=== PATIENT | female | born 1945 | race Caucasian/White ===

== ENCOUNTER 2019-03-24 10:30 | Observation (INO) | payer MEDICARE ==
[2019-03-23 09:53] LABS: BILIRUBIN,URINE NEGATIVE (NEGATIVE); CLARITY,URINE CLEAR (CLEAR); COLOR,URINE YELLOW (YELLOW); KETONES,URINE NEGATIVE (NEGATIVE); LEUKOCYTE ESTERASE ,URINE TRACE (NEGATIVE); NITRITE,URINE NEGATIVE (NEGATIVE); PROTEIN,URINE DIPSTICK NEGATIVE (NEGATIVE); URINE UROBILINOGEN 0.2 mg/dL (0.2 - 1)
--- NOTE | 2019-03-23 10:49 | Diagnostic Imaging Report ---
EXAMINATION: CHEST 2 VIEWS INDICATION: Pre-operative. COMPARISON: None FINDINGS: TUBES and LINES: None. LUNGS: Lungs are well inflated. There is no evidence of pneumonia or pulmonary edema. PLEURA: No pleural effusion or pneumothorax. HEART AND MEDIASTINUM: The cardiomediastinal silhouette is unremarkable. BONES AND SOFT TISSUES: No acute osseous lesion. Soft tissues are unremarkable. UPPER ABDOMEN: No free air under the diaphragm. IMPRESSION: No acute radiographic abnormality. Signed by: Dr. Tee Angelo MD on 03/23/2019 10:45 AM
[~2019-03-24] VITALS: Ht 160 cm; Wt 80.5 kg
[~2019-03-24 10:30] MED LIST: ASPIRIN81 M2 PO; CALCIUM 600 MG1 EAC4; CENTRUM SILVER1 EAC3 PO; FISH OIL 1,0001 EAC9; VITAMIN B; Z.0.ATENOLOL50 MG PO; Z.0.HYDROCHLOROTHIA2 PO; Z.0.MAGNESIUM250 MG PO; Z.0.NAPROXEN500 MG PO; Z.0.ULTRAM 50MG50 MG; Z.0.VITAMIN D3 1,01 PO; Z.3.CENTRUM SILVER1; Z.4.VITAMIN E400 UNI; [UNRECOGNIZED DRUG - OTHER]; [UNRECOGNIZED DRUG - OTHER] PO
--- OUTSIDE RECORDS SUMMARY | 2019-03-24 11:16 | XMS REPORT ---
[facility] Address Unknown Phone Unavailable Care Team Providers Care Chargeback Analyst Name Role Phone FRANCISCA VAZQUEZ Unavailable Unavailable Problems This patient has no known problems. Allergies, Adverse Reactions, Alerts This patient has no known allergies or adverse reactions. Medications This patient has no known medications. Results Test Description Test Time Test Comments Text Results Atomic Results Result Comments CHEST 2 VIEWS 2019-03-23 10:44:00 [facility] [address] [address] Patient Name: DARIO SCHWARZ MR #: [id number] : 1945 Age/Sex: 73/F Req #: [id number] Adm Physician: Ordered by: FRANCISCA VAZQUEZ MD Report #: [id number] Location: OR Room/Bed: Procedure: [id number] DX/CHEST 2 VIEWS Exam Date: 03/23/19 Exam Time: 0955 REPORT STATUS: Signed EXAMINATION: CHEST 2 VIEWS INDICATION: Pre-operati ve. COMPARISON: None FINDINGS: TUBES and LINES: None. LUNGS: Lungs are well inflated. There is no evidence of pneumonia or pulmonary edema. PLEURA: No pleural effusion or pneumothorax. HEART AND MEDIASTINUM: The cardiomediastinal silhouette is unremarkable. BONES AND SOFT TISSUES: No acute osseous lesion. Soft tissues are unremarkable. UPPER ABDOMEN: No free air under the diaphragm. IMPRESSION: No acute radiographic abnormality. Signed by: Dr. Camelia Espinoza MD on 03/23/2019 10:45 AM Dictated By: CAMELIA ESPINOZA MD [id number] Transcribed By: LIDIA on 03/23/19 1045 COPY TO: FRANCISCA VAZQUEZ MD
[2019-03-24] MEDS ORDERED: CEFAZOLIN SOD 2 GM/D5W 50ML 50 ML IV ONE (11:24)
[2019-03-24] MEDS ORDERED: BACITRACIN 50,000 UNIT VIAL ONE (12:50)
[2019-03-24] MEDS ORDERED: HYDROMORPHONE 0.2MG/ML-SOD CHL 30ML PCA SYRINGE IV PRN (15:45)
[2019-03-24] MEDS ORDERED: NALOXONE HCL INJ 0.4 MG/ML AMP IV PRN (15:45)
[2019-03-24] MEDS ORDERED: ACETAMINOPHEN 1000 MG/100 ML IV PRN (15:45)
--- NOTE | 2019-03-24 16:22 | Diagnostic Imaging Report ---
Exam: Left knee 2 views History: Postop Comparison: None. Findings: See impression Impression: 1. Postsurgical changes of total left knee replacement with intact surgical hardware and no periprosthetic displaced fracture. Expected overlying skin marysol and subcutaneous gas. Signed by: Dr. Scar Cortez M.D. on 03/24/2019 4:19 PM
--- NOTE | 2019-03-24 17:30 | NUR ---
pt arrived to unit resp even and unlabored at this time, no distress noted, pt was able to transfer from stretcher to bed, bed in lowest position, rails up X 2, pt oriented to to room and call light, call light in reach. family member at bedside.
[2019-03-24 17:43] VITALS: BP 163/80
--- NOTE | 2019-03-24 18:07 | NUR ---
pt worked with PT walked 150ft. tolerated well.
[2019-03-24] MEDS: SODIUM CHLORIDE 0.9% 1000ML 1,000 ML IV SCH (18:09)
[2019-03-24] MEDS ORDERED: ROPIVACAINE 0.5% 5 MG/ML 30 ML SDV ONE (18:35)
[2019-03-24] MEDS ORDERED: MIDAZOLAM HCL 2 MG/2 ML VIAL ONE (19:36)
[2019-03-24] MEDS ORDERED: FENTANYL CITRATE/PF 100MCG/2 ML INJ ONE ×2 (19:36→19:51)
--- NOTE | 2019-03-24 19:42 | NUR ---
BEDSIDE SHIFT REPORT PERFORMED, RECEIVED PT LAYING SEMI FOWLERS IN BED, AAOX3, RR EVEN AND NON-LABORED, ON RA. NO S/SX OF DISTRESS NOTED. DEPARTMENT COORDINATOR BUTTON WITHIN REACH. (L) KNEE DRESSING NOTED TO BE CDI. LEFT PT LAYING SEMI FOWLERS IN BED, BED IN LOW LOCKED POSITION, SIDE RAILS UPX2, CALL LIGHT AND PHONE WITHIN REACH.
--- NOTE | 2019-03-24 19:45 | NUR ---
REPORT GIVEN TO ONCOMING NURSE, FOR CONTINUED CARE.
[2019-03-24] MEDS ORDERED: MORPHINE SULFATE INJ 10 MG/ML ONE (19:51)
[2019-03-24 20:00] VITALS: BP 140/67
[2019-03-24] MEDS ORDERED: PROPOFOL IV EMULSION 10 MG/ML 20 ML VIAL ONE (20:10)
[2019-03-24] MEDS ORDERED: LIDOCAINE HCL 2% LOCAL INJ 5 ML SDV VIAL INJ ONE (20:10)
[2019-03-24] MEDS ORDERED: SEVOFLURANE INHAL SOLN 250 ML PEN BTL ONE (20:10)
[2019-03-24] MEDS ORDERED: ACETAMINOPHEN 1000 MG/100 ML IV ONE (20:10)
[2019-03-24] MEDS ORDERED: ONDANSETRON HCL INJ 2MG/ML 2ML 2 MG/ML VIAL ONE (20:10)
[2019-03-24] MEDS ORDERED: DEXAMETHASONE SOD PHOS INJ 4 MG/ML VIAL ONE (20:10)
[2019-03-24 20:44] VITALS: BP 140/67
[2019-03-24] MEDS: CEFAZOLIN SOD 1 GM/NS 50ML 50 ML IV SCH (21:30)
[2019-03-25] VITALS (7 sets, daily range): BP systolic 110–143; BP diastolic 57–69
[2019-03-25] MEDS: SODIUM CHLORIDE 0.9% 1000ML 1,000 ML IV SCH ×2 (01:36→11:53)
[2019-03-25] MEDS: CEFAZOLIN SOD 1 GM/NS 50ML 50 ML IV SCH ×2 (06:02→14:00)
[2019-03-25 06:38] LABS: HEMOGLOBIN 10.6 g/dL (12.0-16.0)
--- NOTE | 2019-03-25 07:15 | NUR ---
pt alert resp even and unlabored at this time no distress noted at this time, pt able to make needs known. pt on CPM machine at this time and tolerating well. call light in reach.
[2019-03-25] MEDS: ONDANSETRON HCL INJ 2MG/ML 2ML 2 MG/ML VIAL IV PRN ×2 (08:23→14:36)
[2019-03-25] MEDS: RIVAROXABAN 10 MG TABLET PO SCH ×2 (09:09→17:47)
--- NOTE | 2019-03-25 09:16 | NUR ---
EDUCATED ABOUT IMM, SIGNED, FILED IN CHART, WITH COPY LEFT WITH FAMILY AT BEDSIDE.
--- NOTE | 2019-03-25 19:18 | NUR ---
report given to oncoming nurse, for continued care.
--- NOTE | 2019-03-25 19:40 | NUR ---
CPM APPLIED @ 55 FLEXION DEGREE.
[2019-03-25] MEDS ORDERED: HYDROMORPHONE 1MG/1ML INJ IV PRN (20:15)
[2019-03-25] MEDS ORDERED: HYDROMORPHONE 2MG/ML 2 MG/ML ML IV PRN (20:45)
--- NOTE | 2019-03-25 21:40 | NUR ---
Assessment done.no resp.distress.pain voiced 02/27.left knee dressing is dry .bed locked and in lowest position.phone and call light within reach.instructed to call for assistance as needed.
[2019-03-26 00:34] VITALS: BP 143/69
--- NOTE | 2019-03-26 01:16 | NUR ---
D/C HYPOID GEAR GENERATOR DILAUDID.
--- NOTE | 2019-03-26 02:32 | NUR ---
TEMP CHECKED AND NOTED 99.7.
--- NOTE | 2019-03-26 03:12 | Consultation ---
DATE OF CONSULTATION: PRIMARY CARE PHYSICIAN: Kristian Cash MD REASON FOR CONSULTATION: Medical management post left total knee replacement. HISTORY OF PRESENT ILLNESS: This is a 73-year-old female with long-standing left knee osteoarthritis. The patient had conservative measure for years with intractable left knee pain and now is status post left knee replacement. She did have left knee arthroscopic surgery previously. Baseline hypertension. The patient is otherwise stable. Currently, she is postoperative day #1, she is doing well. She is on a left knee immobilizer. The patient is having pain, but stable and controlled with pain medication. The patient does have some nausea with RADIOGRAPHY TECHNICIAN, but she is stable. PAST MEDICAL HISTORY: Hypertension and osteoarthritis. PAST SURGICAL HISTORY: Left knee arthroscopic surgery, now status post left knee total replacement. ALLERGIES: NO KNOWN ALLERGIES. HOME MEDICATIONS: Atenolol, HCTZ, and multivitamins. PHYSICAL EXAMINATION: VITAL SIGNS: Temperature is 98, blood pressure 136/65, pulse rate is 84, and respirations 18. GENERAL: The patient in good spirits. She is not in any distress. Pain control. No chest pain. No shortness of breath. HEENT: Normocephalic, atraumatic. Anicteric. NECK: Supple grossly. PULMONARY: Grossly bilaterally anteriorly. CARDIOVASCULAR: Regular rate and rhythm. ABDOMEN: Soft, nondistention. Positive bowel sounds. EXTREMITIES: Status post left knee replacement, left lower extremity on knee immobilizer. No gross edema. PJ hose intact. SCD. NEUROLOGIC: No gross focal deficit. The patient is awake and alert x4. LABORATORY DATA: Hemoglobin and hematocrit are 10.6 and 31.0. IMPRESSION: 1. Postoperative day #1, post left total knee replacement. 2. Hypertension, adequately controlled. 3. Slight anemia. PLAN: We will adjust the patient's medication. The anemia could be hemodilution since the patient on IV fluids. We will discontinue IV fluids. The patient is already on a diet. We will repeat lab work. Adjust patient's medication, we will discontinue the RADIOGRAPHY TECHNICIAN due to nausea. Thank you, Dr. Jose Del Valle. We will continue to monitor this patient with you until she is discharged from the hospital. MD SARAH Jordan/MODL /[id number]
[2019-03-26] MEDS: HYDROCODONE/APAP 10MG-325MG TAB PO PRN ×2 (05:24→09:45)
[2019-03-26 05:51] VITALS: BP 140/75
[2019-03-26 06:06] LABS: BASOPHILS % 0.3 % (0.0-1.0); EOSINOPHILS # (AUTO) 0.1 (0.0-0.4); EOSINOPHILS % 1.3 % (0.0-6.0); HEMATOCRIT 27.7 % (34.2-44.1); HEMOGLOBIN 9.4 g/dL (12.0-16.0); LYMPHOCYTES # (AUTO) 0.7 (1.0-3.2); LYMPHOCYTES % 10.2 % (18.0-39.1); MEAN CORPUSCULAR HEMOGLOBIN 29.9 pg (28-32); MEAN CORPUSCULAR HGB CONC 33.9 g/dL (31-35); MEAN CORPUSCULAR VOLUME 88.2 fL (81-99); MONOCYTES # (AUTO) 0.8 (0.2-0.8); NEUTROPHILS # (AUTO) 5.4 (2.1-6.9); NEUTROPHILS % 76.8 % (38.7-80.0); PLATELET COUNT 165 x10e3/uL (140-360); RED BLOOD COUNT 3.14 x10e6/uL (3.6-5.1); RED CELL DISTRIBUTION WIDTH 12.7 % (11.7-14.4)
--- NOTE | 2019-03-26 06:18 | NUR ---
Dsg changed.cpm applied @ flexion degree 55.tolerating well.
[2019-03-26 06:31] LABS: ANION GAP 10.6 mmol/L (8-16); BLOOD UREA NITROGEN 11 mg/dL (7-26); BUN/CREATININE RATIO 14 (6-25); CALCIUM 8.9 mg/dL (8.4-10.2); CARBON DIOXIDE 25 mmol/L (22-29); CHLORIDE 101 mmol/L (98-107); CREATININE, SERUM 0.79 mg/dL (0.57-1.11); EST GLOMERULAR FILTRATION RATE > 60 ML/MIN (60-); GLUCOSE 130 mg/dL (74-118); POTASSIUM 3.6 mmol/L (3.5-5.1); SODIUM 133 mmol/L (136-145)
--- NOTE | 2019-03-26 06:50 | NUR ---
REPORT GIVEN TO THE ONCOMING RN.WALKING ROUNDS DONE.STABLE CONDITION.
--- NOTE | 2019-03-26 07:15 | NUR ---
PT RESTING IN BED AA0X3. PT IS CURRENTLY ON CPM TO THE LEFT KNEE TOLERATING WELL LEFT KNEE DRESSING IS DRY AND INTACT, BILATERAL PJ HOLES ON AND FOOT PUMPS PT HAS A RIGHT HAND 20 SL CLEAN AND DRY WILL CONTINUE TO MONITOR PT CLOSELY SIDE RAILSX2, BED WHEELS LOCKED ,CALL LIGHT IS WITHIN EASY REACH INSTRUCTED TO CALL FOR ASSISTANCE IF NEEDED
[2019-03-26 07:48] VITALS: BP 136/65
[2019-03-26 09:00] VITALS: BP 136/65
[2019-03-26 11:49] VITALS: BP 131/60
--- NOTE | 2019-03-26 12:10 | NUR ---
Called and spoke with Nina at [employer] [facility]. She states they have authorization for DME and have already been in contact with pt. Will deliver tomorrow if pt discharges today.
--- NOTE | 2019-03-26 13:37 | NUR ---
Provided pt with walker from hospital and had DME form signed. CM printed contact information for DME company and home health [employer] and gave them to pt. She has already been contacted by both. [facility] - will see pt tomorrow. [facility]
--- NOTE | 2019-03-26 15:00 | NUR ---
DC INSTRUCTIONS AND PRESCRIPTIONS GIVEN. PT VERBALIZED UNDERSTANDING IV DC PRESSURE DRESSING APPLIED AND TAPED WALKER HAS BEEN DELIVERED PT IS NOW OFF UNIT TO HOME
--- NOTE | 2019-03-26 17:42 | Operative Report ---
DATE OF PROCEDURE: 03/24/2019 SURGEON: Jose Del Valle MD PREOPERATIVE DIAGNOSIS: Osteoarthritis of the left knee. POSTOPERATIVE DIAGNOSIS: Osteoarthritis of the left knee. OPERATION/PROCEDURE PERFORMED: The patient underwent a left total knee arthroplasty using the Matt Next Generation System, size F femoral component, size 4 tibial component, a 12 mm tibial insert and a 35 mm patella button. INSURANCE UNDERWRITER SALES: Sravanthi Goyal. ANESTHESIA: General endotracheal intubation anesthesia. IV FLUIDS: As per the anesthesia record. BRIEF DESCRIPTION OF THE PATIENT'S OPERATIVE PROCEDURE: Ms. Galvez was taken to the operating room, placed supine position on the operating table. Following the induction of general anesthesia as well as endotracheal intubation, the patient's left lower extremity was examined unde anesthesia. She does not have no gross abnormalities in left lower extremity. The patient's lower extremities were prepped and draped in surgical fashion. The incision was carried along the long axis of the knee. This incision was begun approximately 8 cm proximal to the proximal pole, patella, and extended distally to the level of the tibial tubercle. The incision was carried through skin only. Full-thickness skin flaps were elevated both medially and laterally exposing the extensor mechanism. The extensor mechanism was then incised in line with the skin incision and the patella was reflected laterally. Osteophytes were removed from the patella, the femur, and the tibia. The anterior horns of the medial lateral meniscus were resected. The fat pad was also resected at this time. The knee was placed in flexion of the anterior posterior cruciate ligaments were sacrificed. The 5-in-1 cutting block was then affixed to the femur and the femoral cuts were performed. The intercondylar notch cutting block was then affixed to the femur and the intercondylar notch cut was performed. The finishing block was then affixed to the femur and finalizing the cuts for the femur. Attention was then turned to the tibia. Appropriate retractors were placed around the knee joint to correct all spinal neurovascular structures. The external tibial alignment guide was affixed to the tibia and adjusted appropriately. The proximal tibia was cut. The keel cutting device was then affixed to the tibia and the keel cut was performed. Trial femoral and tibial components were inserted in the knee and soft tissues were balanced. An appropriate size tibial insert was placed in the tibial tray and the knee was reduced and placed in motion, found to be stable. The patella was then reamed and an appropriate size patellar button was affixed to the undersurface of the patella. The patellofemoral joint was reduced and placed through motion. The patella was back, found to track in the center of the knee. All trial components were removed. Cement was mixed on the back table. The bone was prepared for cementation. The femoral tibial and patellar components were then cemented into place. Once cement had cured, tibial insert was inserted into the tibial tray and the knee was reduced and placed through range of motion. Again, found to be stable. The wound was copiously irrigated. The extensor mechanism was repaired with nonabsorbable sutures in a [id number]-bvuic fashion. The remaining soft tissues were closed in a multilayer fashion. Sterile dressings were applied and the patient was then awakened, taken to postanesthesia care unit in stable condition. MD COSME Islas/PINO /[id number]
--- NOTE | 2019-03-27 03:00 | Discharge Summary ---
ADMISSION DIAGNOSIS: End-stage arthritis, left knee. DISCHARGE DIAGNOSIS: End-stage arthritis, left knee. PROCEDURE PERFORMED: The patient underwent left total knee arthroplasty on March 24, 2019. CONSULTATIONS: With Dr. Alston of General Medicine Services as well as with Physical Therapy. BRIEF DESCRIPTION OF HOSPITAL STAY: Ms. Galvez was admitted the hospital on March 24, 2019, and underwent an uncomplicated total knee arthroplasty. She tolerated the procedure well and returned to the postsurgical floor immediately following her surgery. She tolerated her diet following her surgery. She progressed slowly with therapy following the surgery. She had excessive pain requiring IV pain medications following her surgery. On her first postoperative day, she progressed well with physical therapy, but her pain was excessive requiring continued IV medications and therefore she was kept an additional day. Her hemoglobin remained stable during her hospital stay. Her wounds were clean, dry, and intact. On her second postoperative day, she progressed with therapy and her pain was under much better control. She was transitioned from IV to oral pain medications. The therapist deemed her a candidate to be discharged home with outpatient services. She remained medically stable. She was discharged home in stable condition. She will be discharged home. She will have home health and home physical therapy. She will continue her normal diet. She will continue all of her preoperative medications. She will also take [place] 1 to 2 p.o. q.6 hours p.r.n. pain. She will take Xarelto 10 mg p.o. daily as DVT prophylaxis. She will keep her wounds clean, dry, and intact. She will contact the office with excessive drainage from her wounds, intractable pain, or fevers greater than 101.5 that were sustained. She is weightbearing to tolerance on her left lower extremity. She will also contact the office for followup appointment in approximately 10 to 14 days. MD COSME Islas/PINO /[id number]
== END 2019-03-26 14:57 | disposition home health service (06) ==
LOC: OR 10:30 → INTOOBSV 17:04 → MED/SURG 17:04
PROVIDERS: ADMIT Specialist; ATTEND Specialist
DX: M17.12 Unilateral primary osteoarthritis, left knee (principal); I10 Essential (primary) hypertension; D64.9 Anemia, unspecified
CPT/HCPCS: 27447; 36415 ×2; 71046; 73560; 80048; 81003; 85014; 85018; 85025; 86850; 86900; 86920; 97110; 97116 ×3; 97139; 97162; 97530; C1713; G0378 ×3; J0131; J0690 ×3; J1100; J2001; J2250; J2270; J2405 ×2; J2704; J2795; J7030

== ENCOUNTER → 2019-07-13 | Day surgery (SDC) | payer MEDICARE ==
[2019-07-10 15:58] LABS: BASOPHILS % 0.5 % (0.0-1.0); EOSINOPHILS # (AUTO) 0.1 (0.0-0.4); EOSINOPHILS % 1.3 % (0.0-6.0); HEMATOCRIT 38.4 % (34.2-44.1); HEMOGLOBIN 13.1 g/dL (12.0-16.0); LYMPHOCYTES # (AUTO) 1.4 (1.0-3.2); LYMPHOCYTES % 17.7 % (18.0-39.1); MEAN CORPUSCULAR HEMOGLOBIN 28.6 pg (28-32); MEAN CORPUSCULAR HGB CONC 34.1 g/dL (31-35); MEAN CORPUSCULAR VOLUME 83.8 fL (81-99); MONOCYTES # (AUTO) 0.7 (0.2-0.8); MONOCYTES % 8.1 % (4.4-11.3); NEUTROPHILS # (AUTO) 5.9 (2.1-6.9); NEUTROPHILS % 71.8 % (38.7-80.0); PLATELET COUNT 323 x10e3/uL (140-360); RED BLOOD COUNT 4.58 x10e6/uL (3.6-5.1); RED CELL DISTRIBUTION WIDTH 13.4 % (11.7-14.4)
[2019-07-10 16:15] LABS: ANION GAP 13.3 mmol/L (8-16); CALCIUM 10.1 mg/dL (8.4-10.2); CREATININE, SERUM 1.34 mg/dL (0.57-1.11); POTASSIUM 4.3 mmol/L (3.5-5.1)
[~2019-07-13] MED LIST changes: +CALCIUM 500+D1 EACH PO; +COCONUT OIL1000 MG PO; +LIDOCAINE HCL 2% LOCAL INJ 5 ML SDV VIAL INJ ONE; +MIDAZOLAM HCL 2 MG/2 ML VIAL ONE; +PROPOFOL IV EMULSION 10 MG/ML 20 ML VIAL ONE
[2019-07-13 13:10] VITALS: BP 140/79
--- NOTE | 2019-07-14 20:26 | Operative Report ---
DATE OF PROCEDURE: 07/13/2019 SURGEON: Jose Del Valle MD PREOPERATIVE DIAGNOSIS: Left knee arthrofibrosis. POSTOPERATIVE DIAGNOSIS: Left knee arthrofibrosis. OPERATION AND PROCEDURE PERFORMED: The patient underwent a manipulation under anesthesia of the left knee. NETWORK ASSOCIATE: There was no retail store assistant. ANESTHESIA: IV sedation with monitored anesthesia care. BLOOD LOSS: None. COMPLICATIONS: None. BRIEF DESCRIPTION OF THE PATIENT'S OPERATIVE PROCEDURE: Ms. Galvez was taken to the operating room and placed in the supine position on the operating table. Following induction of general anesthesia as well as endotracheal intubation, the patient's left lower extremity was examined under anesthesia. She was found to have a well-healed incision overlying the left knee consistent with a previous left total knee arthroplasty. The patient had full extension of her knee joint. Passive motion of the left knee following IV sedation was only to approximately 90 degrees. The patient's left leg was gently manipulated under anesthesia and fibrous bands were found to give way providing greater flexion of the knee joint. With gentle manipulation and release of this fibrous bands, flexion of the knee was to 132 degrees as measured by goniometer at the time of surgery. Extension was again full. The knee was stable following the manipulation. The patient's IV sedation was reversed, and the patient was then awakened and taken to the postanesthesia care unit in stable condition. MD COSME Islas/MODL /[id number]
== END | disposition home or self-care (01) ==
LOC: OR 10:50
PROVIDERS: ATTEND Specialist
DX: M24.662 Ankylosis, left knee (principal); Z96.652 Presence of left artificial knee joint; M17.12 Unilateral primary osteoarthritis, left knee; I10 Essential (primary) hypertension; K21.9 Gastro-esophageal reflux disease without esophagitis; Z01.810 Encounter for preprocedural cardiovascular examination; Z01.812 Encounter for preprocedural laboratory examination; Z79.82 Long term (current) use of aspirin; Z68.31 Body mass index [BMI] 31.0-31.9, adult
CPT/HCPCS: 27570; 36415; 80048; 85025; 93005; J2001; J2250; J2704

== ENCOUNTER 2020-12-15 20:08 | Emergency (ER) | payer MEDICARE, OTHER ==
[~2020-12-15] VITALS: Ht 160 cm; Wt 79.4 kg
[~2020-12-15 20:08] MED LIST changes: -LIDOCAINE HCL 2% LOCAL INJ 5 ML SDV VIAL INJ ONE; -MIDAZOLAM HCL 2 MG/2 ML VIAL ONE; -PROPOFOL IV EMULSION 10 MG/ML 20 ML VIAL ONE
[2020-12-15] MEDS ORDERED: ORPHENADRINE CITRATE 30 MG/ML VIAL IM ONE ×2 (20:30→20:45)
[2020-12-15] MEDS ORDERED: KETOROLAC TROMETHAMINE 60 MG/2 ML VIAL IM ONE ×2 (20:30→20:45)
[2020-12-15] MEDS ORDERED: NAPROXEN250 MG PO (20:35)
[2020-12-15] MEDS ORDERED: CYCLOBENZAPRINE5 MG PO (20:35)
[2020-12-15] MEDS ORDERED: ULTRAM50 MG PO (20:35)
[2020-12-15 21:03] VITALS: BP 141/72
== END 2020-12-15 21:06 | disposition home or self-care (01) ==
LOC: ER 20:20
DX: S39.012A Strain of muscle, fascia and tendon of lower back, initial encounter (principal); X50.1XXA Overexertion from prolonged static or awkward postures, initial encounter; Y93.54 Activity, bowling; Y92.39 Other specified sports and athletic area as the place of occurrence of the external cause; I10 Essential (primary) hypertension; E78.5 Hyperlipidemia, unspecified; K21.9 Gastro-esophageal reflux disease without esophagitis; Z86.73 Personal history of transient ischemic attack (TIA), and cerebral infarction without residual deficits
CPT/HCPCS: 99282; J1885; J2360

== ENCOUNTER 2022-09-25 10:08 | Emergency (ER) | payer OTHER ==
[~2022-09-25] VITALS: Ht 160 cm; Wt 79.4 kg
[~2022-09-25 10:08] MED LIST changes: +CYCLOBENZAPRINE5 MG PO; +NAPROXEN250 MG PO; +ULTRAM50 MG PO
== END 2022-09-25 13:46 | disposition home or self-care (01) ==
LOC: ER 10:30
DX: S93.401A Sprain of unspecified ligament of right ankle, initial encounter (principal); M19.071 Primary osteoarthritis, right ankle and foot; I10 Essential (primary) hypertension; X58.XXXA Exposure to other specified factors, initial encounter; Y93.54 Activity, bowling; Y99.8 Other external cause status; Z79.899 Other long term (current) drug therapy; Z96.659 Presence of unspecified artificial knee joint
CPT/HCPCS: 99282

== ENCOUNTER 2025-05-22 10:40 | Emergency (ER) | payer MEDICARE, OTHER ==
[~2025-05-22] VITALS: Ht 160 cm; Wt 77.1 kg
[2025-05-22] MEDS: SODIUM CHLORIDE 0.9% 1000ML 1,000 ML IV ONE (11:33)
[2025-05-22] MEDS: ONDANSETRON HCL INJ 2MG/ML 2ML 2 MG/ML VIAL IV STA (11:33)
[2025-05-22 11:49] LABS: BASOPHILS % 0.1 % (0.0-1.0); EOSINOPHILS % 0.0 % (0.0-6.0); LYMPHOCYTES % 3.2 % (18.0-39.1); MONOCYTES % 4.9 % (4.4-11.3); NEUTROPHILS % 91.4 % (38.7-80.0); RED CELL DISTRIBUTION WIDTH 12.7 % (11.7-14.4)
[2025-05-22 12:10] LABS: EST GLOMERULAR FILTRATION RATE 61.0 ML/MIN (>=60)
[2025-05-22 12:24] LABS: LEUKOCYTE ESTERASE ,URINE NEGATIVE (NEGATIVE); PROTEIN,URINE DIPSTICK 1+ (NEGATIVE); URINE UROBILINOGEN 0.2 mg/dL (0.2 - 1)
[2025-05-22 12:26] LABS: EPITHELIAL CELLS,URINE MANY /LPF
[2025-05-22] MEDS ORDERED: IOPAMIDOL 370 MG/ML 100 ML INFUS..BTL INJ ONE (12:29)
[2025-05-22 13:00] VITALS: BP 132/62; PULSE 81; RESP 18
[2025-05-22 14:00] VITALS: PULSE 78; RESP 18; TEMP 98; O2SAT 97
[2025-05-22] MEDS ORDERED: ONDANSETRON ODT4 MG PO (14:32)
== END 2025-05-22 14:36 | disposition home or self-care (01) ==
LOC: ER 11:09
DX: R11.2 Nausea with vomiting, unspecified (principal); B34.9 Viral infection, unspecified; R19.09 Other intra-abdominal and pelvic swelling, mass and lump; M79.18 Myalgia, other site; I10 Essential (primary) hypertension; M19.09 Primary osteoarthritis, other specified site
CPT/HCPCS: 36415; 74177; 80053; 81001; 83690; 85025; 87086; 93005; 99284; J2405; J7030; Q9967

== ENCOUNTER 2025-05-30 15:47 | Inpatient (IN) | payer MEDICARE ==
[~2025-05-30] VITALS: Ht 160 cm; Wt 77.1 kg
[~2025-05-30 15:47] MED LIST changes: +ONDANSETRON ODT4 MG PO
[2025-05-30 17:07] LABS: BASOPHILS % 0.2 % (0.0-1.0); EOSINOPHILS % 0.0 % (0.0-6.0); LYMPHOCYTES % 2.2 % (18.0-39.1); MONOCYTES % 5.4 % (4.4-11.3); NEUTROPHILS % 88.3 % (38.7-80.0); RED CELL DISTRIBUTION WIDTH 13.3 % (11.7-14.4)
[2025-05-30] MEDS: Morphine 4mg INJECTION 4 MG/ML INJ IV STA (17:09)
[2025-05-30 17:28] LABS: EST GLOMERULAR FILTRATION RATE 39.0 ML/MIN (>=60)
[2025-05-30 18:22] LABS: BAND NEUTROPHILS % (MANUAL) 2 %; MONOCYTES % (MANUAL) 3 % (3.4-9.0); NEUTROPHILS % (MANUAL) 95 % (40-74)
[2025-05-30 18:24] LABS: PLATELET ESTIMATE ADEQUATE; PLATELET MORPHOLOGY COMMENT NORMAL
[2025-05-30] MEDS: Vancomycin IV 1 GM in SODIUM CHLORIDE 0.9% 250ML 250 ML IV ONE (18:52)
[2025-05-30] MEDS: SODIUM CHLORIDE 0.9% 1000ML 1,000 ML IV ONE (18:52)
[2025-05-30 19:02] VITALS: PULSE 78; RESP 19; TEMP 98.4
[2025-05-30] MEDS ORDERED: IOPAMIDOL 370 MG/ML 100 ML INFUS..BTL INJ ONE (19:06)
[2025-05-30] MEDS: ONDANSETRON HCL INJ 2MG/ML 2ML 2 MG/ML VIAL IV PRN (20:44)
[2025-05-30] MEDS: Morphine 4mg INJECTION 4 MG/ML INJ IV PRN (20:44)
[2025-05-30 21:38] VITALS: BP 132/63; PULSE 74; RESP 18; TEMP 97.3; O2SAT 95
[2025-05-31 01:46] VITALS: PULSE 112; RESP 22; O2SAT 98
[2025-05-31] MEDS: ACETAMINOPHEN 325 MG TAB PO ONE ×2 (02:00→03:26)
[2025-05-31 06:33] VITALS: BP 95/62; PULSE 76; RESP 18; TEMP 96.8; O2SAT 100
[2025-05-31] MEDS ORDERED: FAMOTIDINE20 MG PO (07:19)
[2025-05-31] MEDS ORDERED: LOSARTAN POTASS25 MG PO (07:19)
[2025-05-31] MEDS ORDERED: ACETAMINOPHEN 325 MG TAB PO PRN ×2 (07:45→09:45)
[2025-05-31 08:23] VITALS: PULSE 76; RESP 22; O2SAT 100
[2025-05-31 09:19] VITALS: BP 115/73; PULSE 70; RESP 18; TEMP 98.1; O2SAT 100
[2025-05-31 09:20] VITALS: BP 115/73; PULSE 70; RESP 18; TEMP 98.1; O2SAT 100
[2025-05-31] MEDS ORDERED: HYDRALAZINE HCL 20 MG/ML VIAL IV PRN (09:45)
[2025-05-31] MEDS ORDERED: MAGNESIUM HYDROXIDE 30 ML UDC PO PRN (09:45)
[2025-05-31] MEDS: SODIUM CHLORIDE 0.9% 250ML 250 ML ONE (10:58)
[2025-05-31] MEDS: FUROSEMIDE INJ 10 MG/ML 4 ML VIAL IV ONE (10:59)
[2025-05-31 11:34] VITALS: BP 119/64; PULSE 71; RESP 17; TEMP 97.8; O2SAT 100
[2025-05-31 13:18] LABS: EST GLOMERULAR FILTRATION RATE 39.0 ML/MIN (>=60)
[2025-05-31] MEDS: HYDROCODONE/APAP 7.5MG-325MG 1 EA TAB PO PRN (14:43)
[2025-05-31] MEDS ORDERED: FAMOTIDINE 20 MG TAB PO SCH (16:30)
[2025-05-31] MEDS ORDERED: ENOXAPARIN SOD INJ 40 MG/0.4 ML SYR SC SCH (17:00)
[2025-05-31] MEDS ORDERED: METOPROLOL TARTRATE 25 MG TAB PO SCH (17:00)
[2025-05-31] MEDS ORDERED: SENNA-S TABLET PO SCH (17:00)
[2025-06-01] MEDS ORDERED: PANTOPRAZOLE SOD 40 MG TABEC PO SCH (07:30)
[2025-06-01] MEDS ORDERED: FUROSEMIDE INJ 10 MG/ML 4 ML VIAL IV SCH (09:00)
== END 2025-05-31 15:20 | disposition other institution, planned readmission (95) | DRG 603 ==
LOC: ER 16:08 → ERHOLD 18:39 → MED/SURG 20:26
PROVIDERS: ADMIT Internal Medicine; ATTEND Internal Medicine
DX: L02.415 Cutaneous abscess of right lower limb (principal); R78.81 Bacteremia; L03.115 Cellulitis of right lower limb; I10 Essential (primary) hypertension; M19.90 Unspecified osteoarthritis, unspecified site; B96.89 Other specified bacterial agents as the cause of diseases classified elsewhere; N83.202 Unspecified ovarian cyst, left side; Z96.641 Presence of right artificial hip joint; Z96.652 Presence of left artificial knee joint
CPT/HCPCS: 36415; 74177; 80048; 80053; 85025; 87040; 87071; 87186; 87205; 94799; 99284; J1938; J2270; J2405; J2543; J3373; J7030; J7050; Q9967